=== PATIENT | male | born 2005 | race African-American/Black ===

== ENCOUNTER 2024-02-07 12:50 | Emergency (ER) | payer OTHER ==
[~2024-02-07] VITALS: Ht 172.7 cm; Wt 70.3 kg
[2024-02-07 16:24] VITALS: BP 119/72; TEMP 98.1; O2SAT 99
== END 2024-02-07 16:20 | disposition home or self-care (01) ==
LOC: M ED 12:50
DX: R20.9 Unspecified disturbances of skin sensation (principal)